=== PATIENT | female | born 1965 | race Caucasian/White ===

== ENCOUNTER 2017-09-16 13:11 | Emergency (ER) | payer OTHER ==
[2017-09-16] MEDS ORDERED: IV NORMAL SALINE 1000ML BAG 1,000 ML IV (13:15)
[2017-09-16] MEDS: IPRATRPIUM/ALBUTEROL 0.5/2.5MG 3 ML NEBU. NEB (13:15)
== END 2017-09-16 13:35 | disposition left against medical advice (07) ==
LOC: ER 13:11
DX: J44.9 Chronic obstructive pulmonary disease, unspecified (principal); F31.9 Bipolar disorder, unspecified; G43.909 Migraine, unspecified, not intractable, without status migrainosus; F20.9 Schizophrenia, unspecified; Z90.49 Acquired absence of other specified parts of digestive tract; Z88.8 Allergy status to other drugs, medicaments and biological substances
CPT/HCPCS: 99283

== ENCOUNTER 2019-03-02 22:42 | Emergency (ER) | payer MEDICAID, OTHER ==
[~2019-03-02] VITALS: Ht 152.4 cm; Wt 45.8 kg
[~2019-03-02 22:42] MED LIST: HYDR25CA PO; LURA80TA PO; VERA180T6 PO
[2019-03-02] MEDS ORDERED: diphenhydrAMINE 50 MG/ML VIAL IM ONE (23:45)
[2019-03-02] MEDS ORDERED: KETOROLAC 30 MG/ML VIAL. IM ONE (23:45)
[2019-03-02] MEDS ORDERED: METOCLOPRAMIDE HCL 10 MG/2 ML VIAL. IM ONE (23:45)
--- NOTE | 2019-03-03 00:16 | PHYS DOC ---
Past Medical History Past Medical History: Bipolar, COPD, Depression, GERD, Hypertension, Migraines, Schizophrenia Additional Past Medical Histor: personality disorder, seasonal allergies, tbi, left eye infection, psoriasi Past Surgical History: Cholecystectomy Additional Past Surgical Histo: tubal , eye surgery, ovarian cyst rupture, wrist surgery w/ plate Alcohol Use: Occasionally Additional Information: reports she drank 1/2 of a beer today at 8am Drug Use: None Adult General Chief Complaint Chief Complaint: HEADACHE HPI HPI Patient is a 53 year old p/w "killer migraine" pt has a history of migraines, this started five days ago used tylenol with minimal relief tonight it has been getting worse. no fever photophobia resent phonophobia present no thunderclap gradually worse over a week nausea and vomiting present no fever Review of Systems Review of Systems Constitutional: Denies fever or chills [] Eyes: Denies change in visual acuity, redness, or eye pain [] HENT: Denies nasal congestion or sore throat [] Respiratory: Denies cough or shortness of breath [] Cardiovascular: No additional information not addressed in HPI [] GI: Denies abdominal pain, nausea, vomiting, bloody stools or diarrhea [] : Denies dysuria or hematuria [] Musculoskeletal: Denies back pain or joint pain [] All other systems were reviewed and found to be within normal limits, except as documented in this note. Current Medications Current Medications Current Medications Medications (Trade) Dose Ordered Sig/Rustam Start Time Stop Time Status Last Admin Dose Admin Diphenhydramine HCl (Benadryl) 50 mg 1X ONCE 03/02/19 23:45 03/02/19 23:46 DC Ketorolac Tromethamine (Toradol 30mg Vial) 30 mg 1X ONCE 03/02/19 23:45 03/02/19 23:46 DC Metoclopramide HCl (Reglan Vial) 10 mg 1X ONCE 03/02/19 23:45 03/02/19 23:46 DC Allergies Allergies Allergies Coded Allergies Type Severity Reaction Last Updated Verified prochlorperazine edisylate Allergy Intermediate 03/02/19 Yes prochlorperazine maleate Allergy Intermediate 03/02/19 Yes Physical Exam Physical Exam Constitutional: Well developed, CACHECTIC no acute distress, non-toxic appe arance. [] HENT: Normocephalic, atraumatic, bilateral external ears normal, oropharynx moist, no oral exudates, nose normal. [] Eyes: PERRLA, EOMI, THERE IS OPAQUE CORNEA ON THE LEFT OLD PER PT Neck: Normal range of motion, no tenderness, supple, no stridor. [] normal resp effort no increased work of breathing Abdomen: Bowel sounds normal, soft, no tenderness, no masses, no pulsatile masses. [] Skin: Warm, dry, no erythema, no rash. [] Back: No tenderness, no CVA tenderness. [] Extremities: No tenderness, no cyanosis, no clubbing, ROM intact, no edema. [] Neurologic: Alert and oriented X 3, normal motor function, normal sensory function, no focal deficits noted. [] Psychologic: Affect normal, judgement normal, mood normal. [] Current Patient Data Vital Signs Vital Signs Date Time Temp Pulse Resp B/P (MAP) Pulse Ox O2 Delivery O2 Flow Rate FiO2 03/02/19 22:43 98.5 109 20 165/104 (124) 99 Room Air 98.5 EKG EKG [] Radiology/Procedures Radiology/Procedures [] Course & Med Decision Making Course & Med Decision Making Pertinent Labs and Imaging studies reviewed. (See chart for details) []plan to treat in er with migraine cocktail anticipate improvement and d/c home no red flags neuro intact no fever neck supple gradually wosre for a week known hx of migraine Britta Disclaimer Dragon Disclaimer This electronic medical record was generated, in whole or in part, using a voice recognition dictation system. Departure Departure Impression: Primary Impression: Migraine Disposition: HOME, SELF-CARE Condition: STABLE Patient Instructions: Migraine Headache, [id number] MARINO BELLE MD Mar 03, 2019 00:16
[2019-03-03 00:19] VITALS: BP 150/92
== END 2019-03-03 00:36 | disposition home or self-care (01) ==
LOC: ER 22:42
DX: G43.909 Migraine, unspecified, not intractable, without status migrainosus (principal); F31.9 Bipolar disorder, unspecified; J44.9 Chronic obstructive pulmonary disease, unspecified; K21.9 Gastro-esophageal reflux disease without esophagitis; I10 Essential (primary) hypertension; F20.9 Schizophrenia, unspecified; Z88.8 Allergy status to other drugs, medicaments and biological substances
CPT/HCPCS: 96372; 99284; J1200; J1885; J2765